=== PATIENT | male | born 1955 | race Two or more races ===

== ENCOUNTER 2018-01-06 00:54 | Emergency (ER) | payer OTHER ==
[~2018-01-06] VITALS: Ht 180.3 cm; Wt 95.3 kg
[2018-01-06 01:54] LABS: Basophils # (auto) 0 uL; Basophils % (auto) 0.2 % (0.0-2.0); Eosinophils # (auto) 0 uL; Eosinophils % (auto) 0.3 % (0.0-7.0); Hematocrit 48.8 % (41.0-53.0); Hemoglobin 16.2 g/dL (13.5-17.5); Lymphocytes # (auto) 0.5 uL; Lymphocytes % (auto) 5.9 % (10.0-50.0); Mean Corpuscular Hemoglobin 31.9 pg (28.0-32.0); Mean Corpuscular Hgb Conc. 33.3 g/dL (32.0-36.0); Monocytes # (auto) 0.8 uL; Monocytes % (auto) 9.8 % (0.0-12.0); Neutrophils % (auto) 83.8 % (37.0-80.0); Platelet Count (auto) 175 10^3/uL (140-450); Red Blood Cells 5.08 10^6/uL (4.5-5.90); Red Cell Distribution Width 14.8 % (11.8-14.3); White Blood Cell 8.4 10^3/uL (4.4-10.8)
[2018-01-06] MEDS ORDERED: ALBUTEROL SULF 2.5 MG/0.5ML(0.5%) NEB SOLN NEB ONE (02:00)
[2018-01-06] MEDS ORDERED: methylPREDNISolone SOD SUCC 125 MG/2 ML VL IV ONE (02:00)
[2018-01-06] MEDS ORDERED: IPRATROPIUM BROM 0.5 MG/2.5ML INH SOL NEB ONE (02:00)
[2018-01-06 02:06] LABS: Alanine Aminotransferase 25 U/L (16-61); Albumin 3.6 g/dL (3.4-5.0); Anion Gap 9 (5-15); Aspartate Aminotransferase 21 U/L (15-37); BUN/Creatinine Ratio 17.8; Blood Urea Nitrogen 16 mg/dL (7-18); Calcium 8.5 mg/dL (8.5-10.1); Carbon Dioxide 31 mmol/L (21-32); Chloride 96 mmol/L (98-107); GFR African American 110 mL/min; GFR Non-African American 91 mL/min; Glucose 131 mg/dL (74-106); Magnesium 1.8 mg/dL (1.6-2.6); Potassium 4.4 mmol/L (3.5-5.1); Sodium 136 mmol/L (136-145)
[2018-01-06 02:10] LABS: Alkaline Phosphatase 97 U/L (45-117); Bilirubin, Total 0.5 mg/dL (0.2-1.0); Total Protein 8.1 g/dL (6.4-8.2)
[2018-01-06] MEDS ORDERED: KETOROLAC TROMETH 30 MG/ML 1ML VIAL IV ONE (02:45)
[2018-01-06] MEDS: MAGNESIUM SULFATE 1GM/100ML 100 ML IV SCH ×2 (03:09→03:47)
[2018-01-06] MEDS ORDERED: guaiFENesin-CODEINE LIQUID 5 ML UD PO ONE (03:30)
[2018-01-06] MEDS ORDERED: FUROSEMIDE 40 MG/4 ML VIAL IV ONE ×2 (03:45→04:00)
[2018-01-06 05:54] VITALS: BP 145/88
== END 2018-01-06 03:54 | disposition home or self-care (01) ==
LOC: ER 00:55
DX: R09.89 Other specified symptoms and signs involving the circulatory and respiratory systems (principal); E11.9 Type 2 diabetes mellitus without complications; I10 Essential (primary) hypertension; E78.5 Hyperlipidemia, unspecified
CPT/HCPCS: 36415; 71045; 80053; 82962; 83735; 83880; 84484; 85025; 93005; 94640; 96365; 96366; 96375; 99285; J1885; J1940; J2930; J3475